=== PATIENT | female | born 1980 | race Caucasian/White ===

== ENCOUNTER 2017-03-20 16:08 | Emergency (ER) | payer OTHER, MEDICAID | END 2017-03-20 16:46 | disposition home or self-care (01) | LOC: D.ER 16:08 | DX: O26.893 Other specified pregnancy related conditions, third trimester (principal); Z3A.32 32 weeks gestation of pregnancy; J20.9 Acute bronchitis, unspecified ==

== ENCOUNTER → 2017-04-21 16:19 | Outpatient (CLI) | payer OTHER | END | disposition home or self-care (01) | LOC: D.LDO 16:19 | DX: O36.8190 Decreased fetal movements, unspecified trimester, not applicable or unspecified (principal) ==

== ENCOUNTER → 2017-04-25 15:51 | Outpatient (CLI) | payer OTHER | END | disposition home or self-care (01) | LOC: D.LDO 15:51 | DX: O36.8130 Decreased fetal movements, third trimester, not applicable or unspecified (principal); Z3A.37 37 weeks gestation of pregnancy ==

== ENCOUNTER → 2017-04-28 18:33 | Outpatient (CLI) | payer OTHER | END | disposition home or self-care (01) | LOC: D.LDO 18:33 | DX: O36.8190 Decreased fetal movements, unspecified trimester, not applicable or unspecified (principal) ==

== ENCOUNTER → 2017-05-03 16:24 | Outpatient (CLI) | payer OTHER | END | disposition home or self-care (01) | LOC: D.LDO 16:24 | DX: O36.8130 Decreased fetal movements, third trimester, not applicable or unspecified (principal); Z3A.38 38 weeks gestation of pregnancy ==

== ENCOUNTER → 2017-05-05 11:15 | Outpatient (CLI) | payer OTHER | END | disposition home or self-care (01) | LOC: D.LDO 11:15 | DX: O36.8130 Decreased fetal movements, third trimester, not applicable or unspecified (principal); Z3A.38 38 weeks gestation of pregnancy ==

== ENCOUNTER → 2017-05-06 14:33 | Outpatient (CLI) | payer OTHER | END | disposition home or self-care (01) | LOC: D.LDO 14:33 | DX: Z34.83 Encounter for supervision of other normal pregnancy, third trimester (principal); Z3A.38 38 weeks gestation of pregnancy; W19.XXXA Unspecified fall, initial encounter; R10.9 Unspecified abdominal pain ==

== ENCOUNTER → 2017-05-10 19:29 | Outpatient (CLI) | payer OTHER ==
[~2017-05-10 19:29] MED LIST: IBUPROFEN600 MG PO; MEPERIDINE HCL50 MG PO; PRENATAL COMPLE1 TAB PO
[2017-05-11 08:25] VITALS: BMI 43.8
== END | disposition home or self-care (01) ==
LOC: D.LDO 19:29
DX: O36.8130 Decreased fetal movements, third trimester, not applicable or unspecified (principal); Z3A.39 39 weeks gestation of pregnancy

== ENCOUNTER → 2017-05-10 19:47 | Outpatient (CLI) | payer OTHER ==
[~2017-05-10 19:47] MED LIST changes: -IBUPROFEN600 MG PO; -MEPERIDINE HCL50 MG PO
[2017-05-11 08:25] VITALS: BMI 43.8
== END | disposition home or self-care (01) ==
LOC: D.LDO 19:47
DX: O36.8130 Decreased fetal movements, third trimester, not applicable or unspecified (principal); Z3A.39 39 weeks gestation of pregnancy

== ENCOUNTER 2017-05-11 07:17 | Inpatient (IN) | payer OTHER ==
[~2017-05-11] VITALS: Ht 162.6 cm; Wt 111.1 kg
[2017-05-11] MEDS ORDERED: PRENATAL COMPLE1 TAB PO (07:49)
[2017-05-11 08:25] VITALS: BP 117/58; Ht 162.6 cm; Wt 111.1 kg
[2017-05-11 08:58] LABS: HEMATOCRIT 35.6 % (36.0-48.0); HEMOGLOBIN 11.6 g/dL (12-16); MCH 30.6 pg (26.0-34.0); MCHC 32.6 g/dL (31.0-37.0); MCV 93.9 fL (80.0-100.0); MEAN PLATELET VOLUME 11.2 fL (7.4-10.4); RBC 3.79 10x6/uL (4.00-5.40); RDW 14.2 % (11.5-14.5); WBC 10.8 10x3/uL (4.8-10.8)
[2017-05-11 10:12] LABS: APPEARANCE SLT CLOUDY (CLEAR); BILIRUBIN NEGATIVE (NEGATIVE); COLOR YELLOW (YELLOW); GLUCOSE NEGATIVE (NEGATIVE); KETONE NEGATIVE (NEGATIVE); LEUKOCYTE ESTERASE TRACE (NEGATIVE); NITRITE NEGATIVE (NEGATIVE); PROTEIN NEGATIVE (NEGATIVE); UROBILINOGEN NORMAL (NORMAL); WHITE CELLS - URINE 0-5 /hpf (0-5)
[2017-05-11 10:13] LABS: BACTERIA MANY /hpf (NONE SEEN); MUCUS <1+ /lpf (NONE SEEN)
--- NOTE | 2017-05-11 11:13 | NUR ---
THE PATIENT IS CONCERED ABOUT BEING TOO SLEEPY AND REQUESTED NO PAIN MEDICATION IN RR.
--- NOTE | 2017-05-11 11:18 | NUR ---
THE PATIENT APPEARS TO BE RESTING COMFORTABLE
[2017-05-11 11:27] VITALS: BP 140/106
--- NOTE | 2017-05-11 11:45 | NUR ---
PT IS RECEIVED FROM RECOVERY. SHE IS SLEEPY BUT AWAKE AT THIS TIME. VSS. GEN - AWAKE AND ALERT. LUNGS- CLEAR. HEART- RRR. ABD- SOFT WITH TENDERNESS WITH LOW TRANSVERSE INCISION WITH LARGE BULKY DRESSING. CLEAN , DRY AND INTACT.BRIAN PAD WITH SMALL LOCIA RUBRA. GRIFFITH INTACT WITH YURIY COLORED URINE. SCD'S INTACT AND WERE HOOKED UP TO MACHINE. IV NOTED R FOREARM. PATENT WITH NS WITH PIT INFUSING AT 125 CC/H. DEMEROL PARK MAINTAINER WAS INITIATED. 10 MG Q 10 MIN WITH NO LOCKOUT DOSE. BED IS LOW. SIDE RAILS UP X 2 AND CALL LIGHT IN REACH. PT INSTRUCTED ON CLEAR LIQUIDS, TURN COUGH AND DEEP BREATHS, INC SPIROMETRY, SCD'S GRIFFITH AND ICE PACK.
--- NOTE | 2017-05-11 12:00 | NUR ---
PT IS SLEEPING OFF AND ON. BABY TO ROOM . MOTHER AND BABY SKIN TO SKIN REQUESTED.
[2017-05-11 12:03] LABS: CALC OSMOLALITY 276 mosm/kg (275-300); CALCIUM 8.3 mg/dL (8.5-10.1); CARBON DIOXIDE 21.2 mmol/L (21.0-32.0); CHLORIDE - SERUM 106 mmol/L (98-107); CREATININE - SERUM 0.6 mg/dL (0.6-1.3); GLUCOSE 86 mg/dL (74-106); POTASSIUM - SERUM 4.7 mmol/L (3.5-5.1); SODIUM 140 mmol/L (136-145); UREA NITROGEN 11 mg/dL (7-18); eGFR NON AFRICAN AMERICAN > 90 mL/min (90-120)
[2017-05-11 12:33] LABS: UDS - AMPHET NEGATIVE QUAL (NEGATIVE); UDS - BARB NEGATIVE QUAL (NEGATIVE); UDS - BENZO NEGATIVE QUAL (NEGATIVE); UDS - COCAINE NEGATIVE QUAL (NEGATIVE); UDS - METH NEGATIVE QUAL (NEGATIVE); UDS - OPIATE NEGATIVE QUAL (NEGATIVE); UDS - PCP NEGATIVE QUAL (NEGATIVE); UDS - THC NEGATIVE QUAL (NEGATIVE)
--- NOTE | 2017-05-11 13:05 | NUR ---
PT IS SLEEPING OFF AND ON. FAMILY COMING AND GOING. PT IS DRINKING CLEAR LIQUIDS. PAIN IS UNDER CONTROL AT THIS TIME. GRIFFITH WITH OUTPUT. IV PATENT. BED IS LOW, SIDE RAILS UP X 2 AND CALL LIGHT IN REACH
--- NOTE | 2017-05-11 14:00 | NUR ---
BP'S HAVE BEEN ELEVATED. CHANGED BP CUFF TO NEW LARGER CUFF AND BP IS 123/82. PT STATES THAT SHE HAS NEVER HAD PROBLEMS WITH BP. SHE STATES CREEL OPERATOR DEMEROL IS CONTROLLING HER PAIN.
--- NOTE | 2017-05-11 16:00 | NUR ---
PT WAS ROLLED OVER TO HER SIDE AND SHE WAS CLEANED UP AND HER PADS WERE CHANGED. SHE HAD MODERATE RED BLOOD NOTED ON PINK AND BLUE PADS. NEW PADS PLACED. INCISION COVERED WITH BULKY DRESSING. IV PATENT RIGHT ARM. GRIFFITH INTACT. SCD'S INTACT. BED IS LOW, SIDE RAILS UP X 2 AND CALL LIGHT IN REACH. AT BEDSIDE.
--- NOTE | 2017-05-11 17:45 | NUR ---
DR BARBER HERE TO SEE PT. STATES THAT SHE CAN GO HOME.
--- NOTE | 2017-05-11 17:57 | NUR ---
PT IS TRYING TO EAT DINNER. CLEAR LIQUIDS. SHE IS DOZING OFF. GRIFFITH WITH 600 CC YURIY COLORED URINE. IV INPUT 704, GRAIN MILL PRODUCTS INSPECTOR COMPLETED VIAL. VIAL CHANGED. GRIFFITH PATENT. IV PATENT. PT STATES THAT SHE IS NOT HAVING ANY PAIN AT THIS TIME.
--- NOTE | 2017-05-11 17:59 | NUR ---
PT IS EATING HER DINNER. TOLERATING WELL.
--- NOTE | 2017-05-11 19:18 | NUR ---
PM ROUNDS MADE, PT IS HOLDING BABY, INFORMED PT THAT I WILL BE BACK SHORTLY TO DO ASSESSMENT, PT VERBALIZES UNDERSTANDING, REQUESTED AND SERVED LEMON [place], PT DENIES FURTHER NEEDS, FOB AT BEDSIDE
[2017-05-11 20:45] VITALS: BP 116/70
--- NOTE | 2017-05-11 20:45 | NUR ---
ASSESSMENT PER FLOW SHEET, VS OBTAINED, IV IN RIGHT HAND INTACT WITH NO REDNESS OR EDEMA INFUSING VIA PUMP NS WITH PITOCIN AT 125 ML/HR, DEMEROL MACHINE SPECIALIST TO DELIVER 10MG/10MINS PER PTS DEMAND FOR PAIN CONTROL, PT REPORTS PAIN 0/10 AT THIS TIME, FF, ML, U/1, BRIAN CARE DONE WITH WET WARM WASH CLOTHS, BLUE CHUX AND BRIAN PAD CHANGED, LITE BLEEDING NOTED WITH NO CLOTS, BIKINI INC WITH LARGE DRESSING CDI WITH NO DRAIANGE NOTED, GOWN CHANGED DUE TO ICE PACK LEAKING, FRESH ICE PACK TO ABD, GRIFFITH CATH INTACT DRAINING DARK YELLOW URINE, PT DENIES FLATUS, SCDS ON AND WORKING PROPERLY, PT INST ON IS, PT REPOSITIONED TO RIGHT SIDE WITH PILLOW BEHIND BACK AND UNDER ABD FOR COMFORT AND SUPPORT, PT DENIES FURTHER NEEDS, FOB AT BEDSIDE HOLDING BABY
--- NOTE | 2017-05-11 21:30 | NUR ---
PT RESTING, DENIES NEEDS OR PAIN, FOB AND BABY IN OPEN CRIB CART AT BEDSIDE
--- NOTE | 2017-05-11 22:33 | NUR ---
PT HOLDING BABY, DENIES NEEDS AT THIS TIME, FOB TO NOURISHMENT CENTER
[2017-05-12 00:15] VITALS: BP 102/74
--- NOTE | 2017-05-12 00:15 | NUR ---
PT RESTING WITH EYES CLOSED, AROUSES TO SOFT VERBAL STIMULATION, VS OBTAINED, BRIAN PAD CHANGED, PT REPOSITIONED TO RIGHT SIDE WITH PILLOW BEHIND BACK AND UNDER ABD FOR COMFORT AND SUPPORT, FRESH ICE PACK TO ABD, SCD'S CONTINUE ON AND WORKING PROPERLY, GRIFFITH CATH EMPTIED, PT DENIES NEEDS AT THIS TIME, FOB AT BEDSIDE
--- NOTE | 2017-05-12 01:32 | NUR ---
PT RESAW CARRIAGE OPERATOR LIGHT, PT C/O "BEING HOT", AND REQUESTED A FAN, AIR CONDITIONER ADJ AND FAN PROVIDED, PT DENIES FURTHER NEEDS, FOB AT BEDSIDE
--- NOTE | 2017-05-12 02:20 | NUR ---
PT AWAKE, FOB FEEDING BABY, PT REQUESTED AND SERVED LEMON [place] SODA, DENIES FURTHER NEEDS
[2017-05-12 03:45] VITALS: BP 120/72
--- NOTE | 2017-05-12 03:45 | NUR ---
PT AWAKE, VS OBTAINED, I&O'S COLLECTED, BRIAN PAD CHANGED, LITE BLEEDING NOTED WITH NO CLOTS, FRESH ICE PACK TO ABD, PT DENIES PAIN AT THIS TIME, FOB HOLDING BABY
--- NOTE | 2017-05-12 05:42 | NUR ---
PT RESTING WITH EYES CLOSED, RESP QUIET, NO DISTRESS NOTED, LEFT UNDISTURBED AT THIS TIME, FOB AND BABY IN OPEN CRIB CART AT BEDSIDE
--- NOTE | 2017-05-12 07:00 | NUR ---
SHFIT REPORT TO DAY SHIFT
[2017-05-12 07:02] LABS: HEMATOCRIT 31.8 % (36.0-48.0); HEMOGLOBIN 10.3 g/dL (12-16); MCH 30.6 pg (26.0-34.0); MCHC 32.4 g/dL (31.0-37.0); MCV 94.4 fL (80.0-100.0); MEAN PLATELET VOLUME 10.9 fL (7.4-10.4); RBC 3.37 10x6/uL (4.00-5.40); RDW 14.3 % (11.5-14.5); WBC 13.1 10x3/uL (4.8-10.8)
[2017-05-12 07:25] LABS: RAPID PLASMA REAGIN Non Reactive (Non Reactive)
[2017-05-12 07:30] VITALS: BP 120/71
--- NOTE | 2017-05-12 07:30 | NUR ---
PT IS RESTING IN BED THIS AM. SHE OFFERS NO COMPLAINTS. HER TANNING SOLUTION MAKER ALARM WENT OFF. TANNING SOLUTION MAKER TURNED OFF FOR NOW. IV IS PATENT R HAND WITH NS WITH PIT INFUSING AT 125 CC/HR. GRIFFITH IS INTACT WITH YURIY COLORED URINE. SCD'S INTACT. GEN- AWAKE AND ALERT. LUNGS- CLEAR. HEART- RRR. ABD- SOFT WITH TENDERNESS. LARGE BULKY DRESSING INTACT. EXT- SCD'S INTACT. BED IS LOW, SIDE RAILS UP X 2. CALL LIGHT IN REACH. AT BEDSIDE.
--- NOTE | 2017-05-12 08:50 | NUR ---
PTS GRIFFITH REMOVED. 1100 CC YURIY COLORED URINE. IV SALINE LOCKED. DEMEROL HAMMER FITTER D'CD. SCD'S REMOVED AT THIS TIME. DRESSING REMOVED. INCISION IS CLEAN AND DRY WITH STERI STRIPS INTACT.
--- NOTE | 2017-05-12 09:08 | NUR ---
PT REQUESTED ORAL PAIN MED. GIVEN.
--- NOTE | 2017-05-12 10:00 | NUR ---
PT UP TO VOID AND TO SHOWER. VOIDED 300 CC BLOOD TINGED URINE. PT TOLERATED SHOWER WELL INCISION PATTED DRY AND PAD PLACED OVER INCISION. STERI STRIPS INTACT. PT NOW SITTING ON SIDE OF BED. OFFERS NO COMPLAINTS.
--- NOTE | 2017-05-12 11:28 | NUR ---
PT IS UP AMBULATING IN HALLWAY WITH HER FAMILY. SHE TOLERATED VERY WELL.
--- NOTE | 2017-05-12 12:21 | NUR ---
PT VOIDED 200CC BLOOD TINGED URINE. PT IS SITTING UP ON SIDE OF BED EATING LUNCH. DENIES ANY PAIN OR CONCERNS AT THIS TIME. CALL LIGHT IN REACH.
--- NOTE | 2017-05-12 13:58 | NUR ---
PT REQUESTED PAIN MED. MEPERDINE 100 MG GIVEN PO. FAMILY AT BEDSIDE. SHE IS SITTING UP ON SIDE OF BED.
--- NOTE | 2017-05-12 14:18 | NUR ---
PT VOIDED FOR THE 3RD TIME. SHE VOIDED 100CC.
--- NOTE | 2017-05-12 15:30 | NUR ---
PT IS WALKING IN HALLWAY WITH FAMILY MEMBER. SHE IS TOLERATING WELL. SHE OFFERS NO COMPLAINTS.
--- NOTE | 2017-05-12 18:25 | NUR ---
PT IS SITTING UP ON THE SIDE OF THE BED. FOB IS CHANGING BABY'S DIAPER. PT OFFERS NO COMPLAINTS. SALINE LOCK PATENT R HAND. BED IS LO, SIDE RAILS UP X 2 AND CALL LIGHT IN REACH. PT HAS VOIDED X 3 POST REMOVAL OF GRIFFITH CATH.
[2017-05-12 19:34] VITALS: BP 124/64
--- NOTE | 2017-05-12 19:34 | NUR ---
ASSESSMENT PER FLOW SHEET, VS OBTAINED, SALINE LOCK IN RIGHT HAND INTACT WITH NO REDNESS OR EDEMA, FF, ML, U/1/, PT REPORTS LITE BLEEDING WITH NO CLOTS, BIKINI INC WITH STERI STRIPS CDI WITH NO DRAINAGE NOTED, PT REPORTS "A LITTLE" FLATUS, INFORMED PT THAT I WILL CHECK TO SEE WHAT IS ORDERED FOR GAS, PT VERBALIZES UNDERSTANDING, NO BM AND VOIDING BY SELF WITH NO DIFFICULTY, PT DENIES FURTHER NEEDS, FOB AND BABY AT BEDSIDE
--- NOTE | 2017-05-12 20:30 | NUR ---
PT AMB IN [place], GAIT STEADY, FOB AT SIDE, RATES INC PAIN 12/31
--- NOTE | 2017-05-12 20:39 | NUR ---
PT BACK IN ROOM, STATES "I'M READY FOR THAT GAS MEDICINE"
--- NOTE | 2017-05-12 20:41 | NUR ---
ADM HARPER PO PER MD ORDERS, SEE EMAR
--- NOTE | 2017-05-12 21:23 | NUR ---
PT LAYING ON LEFT SIDE IN BED, REPORTS NOT PASSING GAS AT THIS TIME, DENIES NEEDS OR PAIN, VISITING WITH FOB AND FAMILY MEMBER, BABY AT BEDSIDE IN OPEN CRIB CART
--- NOTE | 2017-05-12 22:13 | NUR ---
PT DISBURSEMENT CLERK LIGHT, READY FOR BED, SCD'S PLACED ON AND WORKING PROPERLY, DENIES FURTHER NEEDS AT THIS TIME
[2017-05-12 23:30] VITALS: BP 127/78
--- NOTE | 2017-05-12 23:30 | NUR ---
PT FREELANCE WRITER LIGHT, VS OBTAINED, C/O INC PAIN AND CRAMPING, RATES 2/10, ADM DEMEROL PO PER MD ORDERS, ASSISTED PT TO TURN TO RIGHT SIDE, SCD'S CONTINUE ON AND WORKING PROPERLY, DENIES FURTHER NEEDS, FOB HOLDING BABY
--- NOTE | 2017-05-12 23:56 | NUR ---
PT CYBER INTEL PLANNER LIGHT, SCD'S DISCONNECTED, UP TO BR, GAIT STEADY, PT INST TO USE CALL LIGHT WHEN BACK TO BED
--- NOTE | 2017-05-13 00:01 | NUR ---
PT BUILDING TECH LIGHT, PT BACK TO BED, SCD'S RECONNECTED AND WORKING PROPERLY, DENIES FURTHER NEEDS AT THIS TIME
--- NOTE | 2017-05-13 01:22 | NUR ---
PT PIGMENT PUSHER LIGHT, SCD'S DISCONNECTED, PT STATES "I DON'T FEEL VERY GOOD RIGHT NOW", PT INST TO USE CALL LIGHT FOR ANY ASSISTANCE AND WHEN BACK TO BED
--- NOTE | 2017-05-13 01:30 | NUR ---
PT SENIOR SYSTEMS PROGRAMMER LIGHT, PT REPORTS VOMITING X 3, LITE BROWNISH EMESIS NOTED IN COMMODE, PT BACK IN BED, SCD'S RECONNECTED AND WORKING PROPERLY, PT STATES "I FEEL SO MUCH BETTER NOW AFTER I THREW UP", PT REQUESTED SOMETHING DRINK, INFORMED PT THAT I WILL BRING HER ICE CHIPS AT THIS TIME, PT VERBALIZES UNDERSTANDING, BS PRESENT X 4, ICE CHIPS PROVIDED, PT DENIES FURTHER NEEDS, FOB ASLEEP IN RECLINER
--- NOTE | 2017-05-13 02:00 | NUR ---
PT COMBAT ENGINEER LIGHT, PT REQUESTED AND PROVIDED MORE ICE CHIPS, DENIES NAUSEA OR PAIN AT THIS TIME, FOB ASLEEP IN RECLINER
--- NOTE | 2017-05-13 02:19 | NUR ---
PT CONGRESSIONAL DISTRICT AIDE LIGHT, PT ASSISTED TO REPOSITION TO LEFT SIDE, PT DENIES FURTHER NEEDS, FOB ASLEEP IN RECLINER
--- NOTE | 2017-05-13 03:23 | NUR ---
BABY TO ROOM VIA OPEN CRIB CART PER THIS RN, BANDS VERIFIED, ADM DEMEROL AND MYLICON PO PER MD ORDERS, SEE EMAR, PT DENIES FURTHER NEEDS, FOB AT BEDSIDE
--- NOTE | 2017-05-13 04:15 | NUR ---
PT AWAKE, FOB HOLDING BABY, PT REPOSITIONED TO LEFT SIDE, PT AT THAT TIMES REPORT PASSING GAS, PT RATES INC PAIN AND CRAMPING 2/10, DENIES NEEDS AT THIS TIME
--- NOTE | 2017-05-13 06:11 | NUR ---
PT RESTING WITH EYES CLOSED, RESP QUIET, NO DISTRESS NOTED, LEFT UNDISTURBED AT THIS TIME, FOB FEEDING BABY
--- NOTE | 2017-05-13 07:00 | NUR ---
SHIFT REPORT TO ALEX NGO RN
[2017-05-13 07:48] VITALS: BP 138/54
--- NOTE | 2017-05-13 09:01 | NUR ---
PT IS UP TO TAKE SHOWER. SHE OFFERS NO COMPLAINTS. SHE IS WANTING TO KNOW WHEN SHE WILL BE DISCHARGED. DR ROSALES HERE TO SEE BABY AND BABY HAS BEEN DISCHARGED. LINENS PARTIALLY CHANGED SINCE PT IS GOING HOME TODAY.
--- NOTE | 2017-05-13 09:03 | NUR ---
SALINE LOCK REMOVED. TIP INTACT.
--- NOTE | 2017-05-13 10:00 | NUR ---
PT STATES THAT SHE IS PASSING GAS BUT HAS NOT HAD A BM. SHE WAS GIVEN PRUNE JUICE WITH SPRITE.
--- NOTE | 2017-05-13 10:08 | NUR ---
PT STATES THAT SHE HAS BEEN PASSING GAS BUT HAS NOT HAD A BM. OFFERED PT PRUNE JUICE AND SPRITE. SHE TOOK IT.
[2017-05-13] MEDS ORDERED: IBUPROFEN600 MG PO (10:50)
[2017-05-13] MEDS ORDERED: MEPERIDINE HCL50 MG PO (10:50)
--- NOTE | 2017-05-13 11:16 | NUR ---
DISCHARGE INSTRUCTIONS GIVEN. HANDOUTS, PRESCRIPTIONS AND FU APPTS GIVEN. PT WAS TAKEN TO VEHICLE BY WHEEL;CHAIR.
== END 2017-05-13 11:17 | disposition home or self-care (01) | DRG 766 ==
LOC: D.LD 07:17 → D.WS 07:17 → D.SDCHOLD 09:30 → D.WS 13:21
PROVIDERS: ADMIT Obstetrics & Gynecology
PROC: 10D00Z1 Extraction of Products of Conception, Low, Open Approach (ICD-10-PCS; principal; 2017-05-11 08:30)
DX: O34.211 Maternal care for low transverse scar from previous cesarean delivery (principal); Z37.0 Single live birth; Z3A.39 39 weeks gestation of pregnancy

== ENCOUNTER 2017-06-22 11:38 | Emergency (ER) | payer OTHER ==
[2017-05-11 08:25] VITALS: BMI 43.8
[~2017-06-22 11:38] MED LIST changes: +IBUPROFEN600 MG PO; +MEPERIDINE HCL50 MG PO
[2017-06-22 11:57] LABS: BASOPHILS 0 % (0-2); EOSINOPHILS 0.5 % (0-7); HEMATOCRIT 37.6 % (36.0-48.0); HEMOGLOBIN 12.3 g/dL (12-16); IMMATURE GRANULOCYTES 0.4 % (0-5); LYMPHOCYTES 22.1 % (15-50); MCH 29.9 pg (26.0-34.0); MCHC 32.7 g/dL (31.0-37.0); MCV 91.3 fL (80.0-100.0); MEAN PLATELET VOLUME 10.3 fL (7.4-10.4); MONOCYTES 5.5 % (2-11); NEUTROPHILS 71.5 % (40-80); PLATELET COUNT 272 10x3/uL (130-400); RBC 4.12 10x6/uL (4.00-5.40); RDW 13.7 % (11.5-14.5); WBC 7.5 10x3/uL (4.8-10.8)
== END 2017-06-22 12:48 | disposition home or self-care (01) ==
LOC: D.ER 11:38
PROVIDERS: Emergency Medicine
DX: N93.9 Abnormal uterine and vaginal bleeding, unspecified (principal)

== ENCOUNTER → 2018-06-16 15:29 | Outpatient (CLI) | payer MEDICAID ==
[2017-05-11 08:25] VITALS: BMI 43.8
== END | disposition home or self-care (01) ==
LOC: D.CT 15:29
DX: R31.9 Hematuria, unspecified (principal)